=== PATIENT | male | born 1990 | race African-American/Black ===

== ENCOUNTER 2019-10-28 13:15 | Emergency (ER) | payer OTHER ==
--- NOTE | 2019-10-28 13:26 | ER Document Report ---
ED General - General Stated Complaint: LEFT KNEE PAIN Notes: 29-year-old male with history of obesity presents with left knee pain and deformity. He was dressed up as [employer] he pivoted on his left leg to grab a lollipop for a child and felt a pop. He fell on the floor. It symmetric with the left foot. EMS gave him several doses of fentanyl. They report a good pulse on the left lower extremity. TRAVEL OUTSIDE OF THE [place] IN LAST 30 DAYS: No - Related Data Allergies/Adverse Reactions: No Known Allergies Allergy (Verified 05/07/15 17:33) Past Medical History - Social History Smoking Status: Never Smoker Family History: Reviewed & Not Pertinent Pulmonary Medical History: Reports: Hx Asthma Review of Systems - Review of Systems Notes: REVIEW OF SYSTEMS GEN: Denies fever, chills, weight loss ENT: Denies sore throat, nasal discharge, ear pain EYES: Denies blurry vision, eye pain, discharge CV: Denies chest pain, palpitations, edema RESP: Denies cough, shortness of breath, wheezing GI: Denies abdominal pain, nausea, vomiting, diarrhea MSK: Denies joint pain/swelling, edema, SKIN: Denies rash, skin lesions LYMPH: Denies swollen glands/lymph nodes NEURO: Denies headache, focal weakness or numbness, dizziness PSYCH: Denies depression, suicidal or homicidal ideation PHYSICAL EXAMINATION General: No acute distress, well-nourished Head: Atraumatic, normocephalic ENT: Mouth normal, oropharynx moist, no exudates or tonsillar enlargement Eyes: Conjunctiva normal, pupils equal, lids normal Neck: No JVD, supple, no guarding CVS: Normal rate, regular rhythm, no murmurs Resp: No resp distress, equal and normal breath sounds bilaterally GI: Nondistended, soft, no tenderness to palpation, no rebound or guarding Ext: Left knee deformity. The distal lower leg appears to be externally rotated compared to the knee itself. There is tenderness. Compartments are soft. Doppler pulse is intact at about 80 bpm in the left DP. Back: No CVA or midline TTP Skin: No rash, warm Lymphatic: No lymphadeopathy noted Neuro: Awake, alert. Face symmetric. GCS 15. Course - Re-evaluation Re-evalutation: 10/28/19 13:28 Knee dislocation versus patella dislocation versus distal femur proximal tibia fracture, neurovascular intact at this time. I will perform ankle-brachial indices but at this time I do doubt vascular injury. He will get x-ray now he is Phillip quinones pain meds. N.p.o. for now. 10/28/19 14:50 Neurovascular intact with dopplerable pulses. X-ray shows patellar dislocation physical exam confirms this. Attempted reduction using IV pain medicine which was unsuccessful. Sedated Reduced Postprocedural neurovascular exam normal. Placed in a knee immobilizer referred to orthopedics. Procedures - Conscious Sedation Conscious sedation Time started: 14:00 Consent obtained: Yes Indication: Reduction of patellar dislocation Last meal: In 4 hours Prior complications: Other - None Normal healthy pt.: P1. - ASA Classification Airway Evaluation: Large tongue, Obese Mallampati Classification: Class 1 Used during procedure: Suction available, IV access obtained, Pulse ox on pt., clinical biochemist on pt., Other - End-tidal CO2 plug-in and available Medications administered: Diprivan I personally performed/intraservice time: Sedation, Procedure, 31-45 min Complications: No - Joint Reduction/Fracture Care Left Mid- Knee Time completed: 14:00 - Patella dislocation lateral Consent obtained: Yes Conscious sedation: Yes Pre-procedure NV exam: Yes - Normal Manipulation comment: Leg was extended fully. Medial pressure exerted on the patella with palpab Post-procedure NV exam: Yes - Normal Post-reduction x-ray: Joint reduced Reduction attempts: 1 Complications: No Discharge - Discharge Clinical Impression: Dislocation of patella, left, closed Qualifiers: Encounter type: initial encounter Qualified Code(s): S83.005A - Unspecified dislocation of left patella, initial encounter Condition: Good Disposition: HOME, SELF-CARE Instructions: Use of Crutches ([facility]), Ice & Elevation ([facility]), Post Sedation Instructions ([facility]), Dislocation of the Patella ([facility])
[2019-10-28] MEDS ORDERED: PROPOFOL INJ 200 MG/20 ML VIAL IV ONE ×2 (13:50→14:54)
--- NOTE | 2019-10-28 13:55 | RADIOLOGY REPORT (SQ) ---
EXAM DESCRIPTION: KNEE LEFT 4 VIEW COMPLETED DATE/TIME: 10/28/2019 1:44 pm REASON FOR STUDY: er 3 hallway ?deformity to left knee +tenderness COMPARISON: None. NUMBER OF VIEWS: Two views. TECHNIQUE: AP and lateral radiographic images acquired of the left knee. LIMITATIONS: None. FINDINGS: MINERALIZATION: Normal. BONES: No acute fracture or dislocation. No worrisome bone lesions. JOINT: There appears to be lateral subluxation of the patella. SOFT TISSUES: No soft tissue swelling. No radio-opaque foreign body. OTHER: No other significant finding. IMPRESSION: Patellar subluxation. TECHNICAL DOCUMENTATION: JOB ID: [id number] [employer]- All Rights Reserved Reading location - IP/workstation name: [email or web address]
--- NOTE | 2019-10-28 14:54 | RADIOLOGY REPORT (SQ) ---
EXAM DESCRIPTION: KNEE LEFT 2 VIEWS COMPLETED DATE/TIME: 10/28/2019 2:46 pm REASON FOR STUDY: knee injury COMPARISON: None. NUMBER OF VIEWS: Two views. TECHNIQUE: AP and lateral radiographic images acquired of the left knee. LIMITATIONS: None. FINDINGS: MINERALIZATION: Normal. BONES: No acute fracture or dislocation. No worrisome bone lesions. JOINT: No effusion. SOFT TISSUES: No soft tissue swelling. No radio-opaque foreign body. OTHER: No other significant finding. IMPRESSION: NEGATIVE STUDY OF THE LEFT KNEE. NO RADIOGRAPHIC EVIDENCE OF ACUTE INJURY. TECHNICAL DOCUMENTATION: JOB ID: [id number] [employer]- All Rights Reserved Reading location - IP/workstation name: [email or web address]
[2019-10-28 15:46] VITALS: BP 139/74
== END 2019-10-28 15:30 | disposition home or self-care (01) ==
LOC: ER 13:15
DX: S83.005A Unspecified dislocation of left patella, initial encounter (principal); M25.562 Pain in left knee; X50.0XXA Overexertion from strenuous movement or load, initial encounter; Y93.89 Activity, other specified; Y92.511 Restaurant or cafe as the place of occurrence of the external cause; Y99.0 Civilian activity done for income or pay; J45.909 Unspecified asthma, uncomplicated
CPT/HCPCS: 99283; 99152; 73560; 73564; 27562; L1830; J2704